=== PATIENT | female | born 1985 ===

== ENCOUNTER 2016-12-15 22:23 | Inpatient (IN) | payer OTHER ==
[~2016-12-15] VITALS: Ht 167.6 cm; Wt 83.6 kg
[2016-12-15 23:21] VITALS: BP 107/52; PULSE 65; TEMP 98
[2016-12-16 01:23] VITALS: BP 87/36; PULSE 64; TEMP 98.6
[2016-12-16 02:32] VITALS: BP 88/44
[2016-12-16 06:11] VITALS: BP 90/43; PULSE 55; TEMP 98.2
[2016-12-16 08:07] LABS: BILIRUBIN,TOTAL 1.2 mg/dL (0.0-1.0); CALCIUM 8.2 mg/dL (8.4-10.2); CREATININE, serum 0.62 mg/dL (0.52-1.25); POTASSIUM 3.6 mmol/L (3.4-5.0); TOTAL PROTEIN 5.4 gm/dL (6.4-8.2)
[2016-12-16 08:12] LABS: BASO # 0.1 (0.0-0.2); GRAN # 3.5 (1.4-6.5); GRAN % 51.5 % (42.2-75.2); LYMPH # 2.5 (1.2-3.4); LYMPH % 36.4 % (20.0-51.0); MEAN CELL VOLUME 93 fl (80.0-100.0); MEAN CORPUSCULAR HGB CONC 32 g/dl (33.0-37.0); MEAN PLATELET VOLUME 11.5 fl (7.4-10.4); MONO # 0.7 (0.1-0.6); MONO % 10.8 % (1.7-9.3); PLATELET COUNT 207 K/mm3 (130-400); RED BLOOD COUNT 3.61 M/mm3 (4.10-5.30); WHITE BLOOD COUNT 6.8 K/mm3 (4.8-10.8)
[2016-12-16 08:24] LABS: HEMATOCRIT 33.4 % (37.0-47.0); HEMOGLOBIN 10.8 g/dl (12.5-16.0); MEAN CORPUSCULAR HEMOGLOBIN 30 pg (27.0-31.0)
[2016-12-16 14:00] VITALS: BP 103/59; PULSE 59; TEMP 98.4
[2016-12-16 17:57] VITALS: BP 101/59; PULSE 66; TEMP 98.7
[2016-12-16 22:20] VITALS: BP 87/43; PULSE 56; TEMP 98.1
[2016-12-17] VITALS (12 sets, daily range): BP systolic 96–124; BP diastolic 50–92; PULSE 60–99; TEMP 97.9–99
[2016-12-17 07:07] LABS: MEAN CELL VOLUME 94 fl (80.0-100.0); MEAN CORPUSCULAR HGB CONC 32 g/dl (33.0-37.0); MEAN PLATELET VOLUME 11.1 fl (7.4-10.4); PLATELET COUNT 193 K/mm3 (130-400); RED BLOOD COUNT 3.34 M/mm3 (4.10-5.30); REDCELL DISTRIBUTION WIDTH-CV 13.2 % (11.5-14.5); WHITE BLOOD COUNT 6.3 K/mm3 (4.8-10.8)
[2016-12-17 07:22] LABS: CALCIUM 8.2 mg/dL (8.4-10.2); CREATININE, serum 0.72 mg/dL (0.52-1.25); POTASSIUM 3.8 mmol/L (3.4-5.0)
[2016-12-17 07:32] LABS: HEMATOCRIT 31.5 % (37.0-47.0); HEMOGLOBIN 10.1 g/dl (12.5-16.0); MEAN CORPUSCULAR HEMOGLOBIN 30 pg (27.0-31.0)
[2016-12-18 01:36] VITALS: BP 102/54; PULSE 64; TEMP 98.3
[2016-12-18 05:30] VITALS: BP 88/43; PULSE 56; TEMP 99
[2016-12-18 07:39] VITALS: BP 99/52; PULSE 71; TEMP 98.5
[2016-12-18 09:49] VITALS: BP 95/49; PULSE 69; TEMP 98
[2016-12-18 13:58] VITALS: BP 94/43; PULSE 73; TEMP 98
[2016-12-18] MEDS ORDERED: NORCO 325 MG-7.1 TAB PO (14:55)
[2016-12-18 17:30] VITALS: BP 103/54; PULSE 72; TEMP 98.1
== END 2016-12-18 18:19 | disposition home or self-care (01) | DRG 988 ==
LOC: SURG 22:23
PROVIDERS: Surgery
PROC: 0DP64CZ Removal of Extraluminal Device from Stomach, Percutaneous Endoscopic Approach (ICD-10-PCS; principal; 2016-12-15)
DX: T85.528A Displacement of other gastrointestinal prosthetic devices, implants and grafts, initial encounter (principal); K31.1 Adult hypertrophic pyloric stenosis; Z98.84 Bariatric surgery status; Z48.815 Encounter for surgical aftercare following surgery on the digestive system
CPT/HCPCS: A9284; J0330; J0690; J1100; J1170; J1885; J2405; J2704; J2710; J2765; J3010; J7042; J7120